=== PATIENT | male | born 1990 | race African-American/Black ===

== ENCOUNTER 2017-03-02 08:03 | Emergency (ER) | payer OTHER ==
[~2017-03-02] VITALS: Ht 180.3 cm; Wt 80.0 kg
[2017-03-02 08:07] VITALS: BP 160/103; PULSE 101; RESP 16; O2SAT 95
--- NOTE | 2017-03-02 08:24 | ED.REPORT ---
HPI-General Illness Date of Service Mar 02, 2017 ED Provider: Dayanna Montiel MD Pt is a 27 year old male with a history of drug abuse who presents to the ED asking for resources to "get clean". He has been struggling with heroin addiction for 3 years and occasionally uses meth and THC. He denies alcohol use , but admits to smoking cigarettes. He last used heroin 2 hours ago and used meth yesterday. When asked about his addiction he states that he "doesn't even enjoy being high" on heroin and started using "out of boredom". He typically uses half a gram of heroin a day. He has never tried to detox before and has not been on Suboxone previously. He denies abscesses or any other skin issues. The pt reports that he hasn't been recently tested for Hepatitis B, C, or AIDS. Nursing Notes Stated Complaint: SUBSTANCE ABUSE Chief Complaint: Substance Abuse Nursing Notes Reviewed: Yes Allergies: Coded Allergies: amoxicillin (Verified Allergy, Intermediate, HIVES, 03/02/17) General Time Seen by MD: 08:17 Chief Complaint Other (Heroin addiction) Hx Obtained From: Patient Arrived By: Walk-in Sudden in Onset?: No Onset Occurred: More than a week ago... Symptom Duration: Since onset Severity: Current: No pain currently Severity: Maximum: No pain Recent Healthcare: No recent doctor visit, No recent hospitalization Similar Sx Previous: No Past Medical History Past Medical History None reported Reports: Heroin use (and methamphetamine) Past Surgical History Inguinal hernia removal Smoking History Current Every Day Smoker Social History Alcohol Use: "Social" Drug Use: IV drugs, Meth, THC, Other (Heroin) Ambulatory Status Independent Review of Systems +heroin use Denies abscesses or other skin issues Full Review of Systems Respiratory: Denies: Non-productive cough, Shortness of breath Skin: Denies Rash, Denies Swelling Complete sys rev & neg: except as marked. Physical Exam Vital Signs Vital Signs Date Time Temp Pulse Resp B/P Pulse Ox O2 Delivery O2 Flow Rate FiO2 03/02/17 08:07 36.4 101 16 160/103 95 Room Air Initial VS: Reviewed Head / Eyes: Atraumatic, Normocephalic Neck: Supple, Full range of motion Respiratory: Breath sounds normal, Clear to auscultation, No respiratory distress Abdomen / GI: Soft, Non-tender Skin: Warm, Dry, No cyanosis Psychiatric: Mood/affect normal, Behavior normal Head / Eyes: Atraumatic, Normocephalic Cardiovascular: Regular rhythm, Heart sounds NL, No murmurs Heart Rate / Rhythm: Positive: Tachycardia Upper Extremities Upper Extremity / MS: Atraumatic, Full range of motion, Neurologic intact, Vascular intact No track rojas Neurologic: Speech NL Pinpoint pupils and he was nodding off intermittenly during our discussion. Re-Eval/Medical Decision Source of Hx: Old records Time of Eval: 08:34 Patient Status: Condition resolved Re-Evaluation/Progress Note: Pt rechecked. Informed pt of plan for discharge. Pt understands and agrees with plan for discharge. F/U instructions and RTER warnings given. All questions addressed. Counseled Regarding: Diagnosis, Need for follow-up, When/why to return to ED Discharge & Departure Primary Impression: Narcotic addiction Disposition: Home Discharge Condition All VS Reviewed: Yes Condition: Stable Additional Instructions: I'm so glad you came in today. [facility] is the clinic that can help with medically assisted therapy for your addiction issues. Suboxone may be a good option for you to get to sober. Please call them tomorrow am and get an intake appointment arranged. I wish you the best! Referrals: [facility] Scribe Attestation Portions of this note were transcribed by Pierre Menchaca and Renata Mederos. I, Dr. Montiel personally performed the history, physical exam and medical decision-making; I reviewed and confirmed the accuracy of the information in the transcribed note. Signed by: Pierre Menchaca and Juan Carlos Mckeon, 03/02/17 and 09:30. copies to: [facility] Dayanna Montiel MD Mar 02, 2017 08:24 Renata Chris Mar 02, 2017 08:31 PIERRE MENCHACA Mar 02, 2017 09:26
== END 2017-03-02 08:50 | disposition home or self-care (01) ==
LOC: EDSEX 08:03 → SED 08:03
DX: F11.20 Opioid dependence, uncomplicated (principal); F17.200 Nicotine dependence, unspecified, uncomplicated; Z88.1 Allergy status to other antibiotic agents